=== PATIENT | female | born 1980 | race Asian ===

== ENCOUNTER 2017-12-05 05:15 | Inpatient (IN) | payer OTHER ==
[2017-12-05] MEDS ORDERED: SODIUM CHLORIDE 1,000 ML IV SCH (05:55)
[2017-12-05 06:07] VITALS: BMI 26.2
[2017-12-05 06:11] LABS: BASO % 0.8 % (0-2.0); EOS % 1.5 % (0-4.5); HEMATOCRIT 31.2 % (32.4-45.2); LYMPH % 27.5 % (8-40); MCH 24.7 pg (25.7-33.7); MCHC 32.1 g/dl (32.0-36.0); MEAN CELL VOLUME 76.7 fl (80-96); MEAN PLT VOLUME 10.2 fl (7.5-11.1); MONO % 5.8 % (3.8-10.2); NEUT % 64.4 % (42.8-82.8); PLATELET COUNT 316 K/MM3 (134-434); RBC 4.06 M/mm3 (3.60-5.2); RDW 16.5 % (11.6-15.6); WHITE BLOOD COUNT 12.3 K/mm3 (4.0-10.0)
[2017-12-05 06:25] LABS: ANION GAP 9 (8-16); BLOOD UREA NITROGEN 13 mg/dL (7-18); CALCIUM 8.5 mg/dL (8.5-10.1); CHLORIDE 107 mmol/L (98-107); CO2 20 mmol/L (21-32); CREATININE 0.6 mg/dL (0.55-1.02); GLUCOSE,RANDOM 102 mg/dL (74-106); SODIUM 136 mmol/L (136-145)
[2017-12-05 06:27] LABS: POTASSIUM 4.4 mmol/L (3.5-5.1)
[2017-12-05 06:44] LABS: INR 0.88 (0.82-1.09)
[2017-12-05 06:47] LABS: ACTIVATED PTT 27.1 SECONDS (26.9-34.4)
[2017-12-05] MEDS ORDERED: OXYTOCIN 20 UNITS in 0.9% NS 20 UNIT/1,000 ML INFUS.BAG IV ONE (07:26)
[2017-12-05] MEDS ORDERED: OXYTOCIN 20 UNITS in 0.9% NS 20 UNIT/1,000 ML INFUS.BAG IV SCH (07:50)
[2017-12-05] MEDS ORDERED: ACETAMINOPHEN 1000 MG/100 ML VIAL (NON FORMULARY) IVPB ONE (07:55)
[2017-12-05] MEDS ORDERED: ACETAMINOPHEN INJECTION 100 ML IVPB ONE (07:56)
[2017-12-05] MEDS ORDERED: BISACODYL 10 MG SUPP.RECT RC PRN (08:27)
[2017-12-05] MEDS ORDERED: BENZOCAINE 28 GM HEMORRHOIDAL OINTMENT TP PRN (08:27)
[2017-12-05] MEDS ORDERED: oxyCODONE HCL 5 MG TABLET PO PRN (08:27)
[2017-12-05] MEDS ORDERED: BENZOCAINE 20% 57 GM BOTTLE TP PRN (08:27)
[2017-12-05] MEDS ORDERED: WITCH HAZEL 50% (TUCKS) 40 PAD/JAR PAD TP PRN (08:27)
[2017-12-05] MEDS ORDERED: METHYLERGONOVINE MALEATE 0.2 MG/1 ML AMP IM PRN (08:27)
[2017-12-05] MEDS ORDERED: ACETAMINOPHEN 325 MG TABLET (FP) PO PRN (08:27)
[2017-12-05 08:38] LABS: ARTERIAL BLD GAS O2 SATURATION 27.5 % (90-98.9); ARTERIAL BLOOD GAS BASE EXCESS -6.3 meq/l (-2-2); ARTERIAL BLOOD GAS PCO2 52.5 mmHg (35-45); ARTERIAL BLOOD GAS PO2 18.5 mmHg (80-100); ARTERIAL BLOOD GAS pH 7.24 (7.35-7.45)
[2017-12-05 08:49] LABS: VENOUS PC02 39.5 mmHg (38-52); VENOUS PH 7.3 (7.32-7.42); VENOUS PO2 27.7 mmHg (28-48)
--- NOTE | 2017-12-05 08:52 | HP ---
Past Medical History - Primary Care Physician PCP:: Lanny Tinajero - Admission Chief Complaint: 37 yrs , 38.6 weeks IUP , admitted in labor, onset LP since 11.00 Pm on 12/04/17 . pt is known c/o GDM insulin dependent History of Present Illness: pnc with [facility] & 2 [facility] Pt was diagnosed GDM early during pregn , since Last pregn she was GDM , diet controlled . Hgb A1c 6.4%, fasting Bgm was 120.she was instructed to BGM qid . she was referred to Diabtologist . Current reqd :Insulin Lantus 22 iu & Novolog 4 Iu befor meals MFM was following her for serial sonograms for growth , last 4 weeks q week BPP & NST NT screen & Modified Sequentia screen was neg , ECHO normal work Up : A pos, Rubella immune, Rpr nr, Hbsag neg, Hiv neg , Quantiferon neg, Gc/Ct neg, Gbs neg . she had an episode of urine retention once in 3rd trimester & fecal impaction , she was g catheterized, followed by Fleets Enema ineffective, followed by SSE which was satisfactory she continued stool softner ,diet & hemorrhoidal cream during . 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 No: UTI ...: 3 ...Para: 2 ...Term: 2 ...: 0 ...Spon : 0 ...Induced : 0 ...Multiple Gestation: 0 ...LMP: 03/22/17 ... Weeks Gestation by Dates: 36.6 ...EDC by Dates: 12/27/17 ...EDC by Sono: 12/13/17 (38.6weeks ) Additional OB History: G1 05/13/2004 38.2 weeks forceps delivery sJRh. G2 2009 GDM diet controlled at [facility] Heme/Onc: Yes: Anemia Infectious Disease: No: HIV, STD's, Tuberculosis Psych: Yes: Other (denies) Musculoskeletal: Yes: Other (denies) Rheumatology: Yes: Other (enies) ENT: Yes: Other (denies) Endocrine: Yes: Other (GDM) Dermatology: Yes: Other (denies) - Past Surgical History Past Surgical History: Yes: Cholecystectomy (2012) Hx Myomectomy: No Hx Transabdominal Cerclage: No - Smoking History Smoking history: Never smoked Have you smoked in the past 12 months: No - Alcohol/Substance Use Hx Alcohol Use: No History of Substance Use: reports: None - Social History History of Recent Travel: No Home Medications - Allergies Allergies/Adverse Reactions: Allergies Allergy/AdvReac Type Severity Reaction Status Date / Time ibuprofen Allergy Mild Rash Verified 11/21/17 23:55 Latex, Natural Rubber Allergy Mild Rash Verified 11/21/17 23:55 - Home Medications Home Medications: Ambulatory Orders Pnv No.95/Ferrous Fum/Folic AC [ Vitamin Tablet] 1 each PO DAILY Insulin (Novolog) [Novolog] 4 units SQ AC 10/19/17 Insulin Glargine,Hum.rec.anlog [Lantus (nf)] 22 units SQ HS 11/02/17 Physical Exam - Maternity Vital Signs: Vital Signs Temperature 97.6 F 12/05/17 06:00 Pulse Rate 79 12/05/17 06:00 Respiratory Rate 20 12/05/17 06:00 Blood Pressure 129/82 12/05/17 06:00 O2 Sat by Pulse Oximetry (%) Constitutional: Yes: Well Nourished, Severe Distress Eyes: Yes: WNL HENT: Yes: WNL Neck: Yes: WNL Cardiovascular: Yes: WNL Lungs: Clear to auscultation Breast(s): Yes: Other (not exammined) - Abdominal Exam/OB Fundal Height: 40 Number of Fetuses: Single Presentation: Vertex Contractions: Yes Regularity: Regular (2-3 min) Intensity: Strong Monitor Mode: External Heart Rate (range): 140 Heart Rate Location: [facility] Category: I Accelerations: Uniform Decelerations: None - Vaginal Exam/OB Vaginal Bleediing: Bloody Show Speculum Exam: No Dilatation (cm): 9 Effacement (%): 100 Amniotic Membrane Status: Ruptured (AROM 7.20 AM) Amniotic Fluid: Yes: Clear (scanty) Presentation: Vertex/Position Station: +1 - Physical Exam Musculoskeletal: Yes: WNL Extremities: Yes: WNL. No: Calf Tenderness Edema: Yes Edema: LLE: 1+, RLE: 1+ Deep Tendon Reflex Grade: Normal +2 ...Motor Strength: WNL Psychiatric: Yes: WNL, Alert, Oriented - Labs Lab Results: CBC, BMP 12/05/17 05:55 12/05/17 05:55 BGM 5.30 AM 108 Problem List - Problems (1) with 38 completed weeks gestation Code(s): Z3A.38 - 38 WEEKS GESTATION OF (2) Gestational diabetes mellitus (GDM) in childbirth, insulin controlled Code(s): O24.424 - GESTATIONAL DIABETES IN CHILDBIRTH, INSULIN CONTROLLED (3) Labor established Code(s): [id number] - Assessment/Plan 37 yrs , GDM on insulin coverage , Gbs neg, in active labor Plan vag delivery
--- NOTE | 2017-12-05 09:28 | PN ---
Delivery - Delivery Vaginal Delivery: Spontaneous (baby delievered in LARISSA position , cord around neck , was untangled , exagerrated lithotomy position was given , suprapubic pressure applied by Nurse ant shoulder was delievered wihout difficulty) Type of Anesthesia: Local Episiotomy/Laceration: Perineal Extension/lac, 2nd degree (laceration was sutured in layers with chr catgut # 2/0 bladder catheterized & emptied 100 ml urine pr exam was done mucosa & sphincter was intact) EBL (cc): 300 Delivery, Single - Stages of Labor Date 1st Stage Initiatied: 12/05/17 Time 1st Stage Initiated: 03:00 Date 2nd Stage Initiated: 12/05/17 Time 2nd Stage Initiated: 07:35 Date of Delivery: 12/05/17 Time of Delivery: 07:45 Time Placenta Delivered: 07:50 Placenta: Yes: Spontaneous, Uterine Exploration - Condition of Truck Rental Service Attendant/Steam Room Attendant Present: No Gender: Female Weight: 8 lb 1 oz Position: Left, OA Total Hours ROM (Hrs/Mins): 30MIN - 1 Minute Total Score: 8 5 Minutes Total Score: 9 - Feeding Plan Initial Plan: Exclusive throughout hospitalization Remarks - Remarks Remarks: 37 yrs , 38.6/7 weeks in active labor, Gbs neg . pnc with [facility] at [facility] & 2, [facility] Intrapartum course uneventful, no analgesia received. after delivery IV Tyleno 1000 mg given during suturing of laceration . Pp BGM 127 .v/s stable
--- NOTE | 2017-12-05 10:00 | CONSULT ---
Consult Consult Specialty:: Endocrinology Referred by:: Dr Tinajero Reason for Consultation:: GDM - History of Present Illness Chief Complaint: Hyperglycemia History of Present Illness: This is a 37 y/o F with GDM on Levemir 22 units daily and Novolog 4 units TID is now s/p delivery and is referred for management of blood sugar. FS at home was 80 to 90 for the last few days since increase in Levemir dose to 22. Pt had missed appointment and had come for f/u last week after a gap of about 2 months. A1c was 7. 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 No: UTI ...LMP: 12/14/13 Infectious Disease: No: HIV, STD's, Tuberculosis Psych: Yes: Other (denies) Musculoskeletal: Yes: Other (denies) Rheumatology: Yes: Other (enies) ENT: Yes: Other (denies) Endocrine: Yes: Other (GDM) Dermatology: Yes: Other (denies) - Past Surgical History Past Surgical History: Yes: Cholecystectomy (2012) - Alcohol/Substance Use Hx Alcohol Use: No History of Substance Use: reports: None - Smoking History Smoking history: Never smoked Have you smoked in the past 12 months: No - Social History History of Recent Travel: No Home Medications - Allergies Allergies/Adverse Reactions: Allergies Allergy/AdvReac Type Severity Reaction Status Date / Time ibuprofen Allergy Mild Rash Verified 11/21/17 23:55 Latex, Natural Rubber Allergy Mild Rash Verified 11/21/17 23:55 - Home Medications Home Medications: Ambulatory Orders Pnv No.95/Ferrous Fum/Folic AC [ Vitamin Tablet] 1 each PO DAILY Insulin (Novolog) [Novolog] 4 units SQ AC 10/19/17 Insulin Glargine,Hum.rec.anlog [Lantus (nf)] 22 units SQ HS 11/02/17 Family Disease History - Family Disease History Family Disease History: Diabetes: Mother Review of Systems - Review of Systems Constitutional: reports: No Symptoms Eyes: reports: No Symptoms HENT: reports: No Symptoms Neck: reports: No Symptoms Cardiovascular: reports: No Symptoms Respiratory: reports: No Symptoms Gastrointestinal: reports: No Symptoms Genitourinary: reports: No Symptoms Musculoskeletal: reports: No Symptoms Neurological: reports: No Symptoms Endocrine: reports: No Symptoms Physical Exam Vital Signs: Vital Signs Temperature 98.2 F 12/05/17 08:00 Pulse Rate 69 12/05/17 08:45 Respiratory Rate 18 12/05/17 08:45 Blood Pressure 132/88 12/05/17 08:45 O2 Sat by Pulse Oximetry (%) 100 12/05/17 08:45 Constitutional: Yes: No Distress, Calm Eyes: Yes: Conjunctiva Clear, EOM Intact HENT: Yes: Atraumatic, Normocephalic Neck: Yes: Supple, Trachea Midline Cardiovascular: Yes: Regular Rate and Rhythm Respiratory: Yes: Regular, CTA Bilaterally Gastrointestinal: Yes: Normal Bowel Sounds, Soft Renal/: Yes: WNL Musculoskeletal: Yes: WNL Extremities: Yes: WNL Edema: No Neurological: Yes: Alert, Oriented Labs: CBC, BMP 12/05/17 05:55 12/05/17 05:55 Assessment/Plan AP: Gestational DM: S/P delivery Diet Exercise discussed Diabetes Education done Discussed need to control blood sugar to prevent development of DM in the future BGM ACHS Last A1c 7.0 in the office Was on Levemir 22 units daily at HS and Novolog 4 units TID with meals. No Levemir for now Novolog SS coverage Will F/u
[2017-12-05] MEDS ORDERED: INSULIN SLIDING SCALE (NOVOLOG) 1 VIAL SQ SCH (11:00)
[2017-12-05] MEDS: INSULIN SLIDING SCALE (NOVOLOG) 1 VIAL SQ SCH ×3 (11:00→22:12)
[2017-12-05] MEDS: PRENATAL VITAMINS W/ FOLIC ACID TABLET (FP) PO SCH (12:03)
[2017-12-05] MEDS: FERROUS SO4 325 MG TABLET (FP) PO SCH (18:27)
[2017-12-06] MEDS: INSULIN SLIDING SCALE (NOVOLOG) 1 VIAL SQ SCH ×4 (06:15→22:47)
[2017-12-06 08:22] LABS: BASO % 0.3 % (0-2.0); EOS % 0.6 % (0-4.5); LYMPH % 23.8 % (8-40); MCH 24.1 pg (25.7-33.7); MCHC 31.1 g/dl (32.0-36.0); MEAN CELL VOLUME 77.4 fl (80-96); MEAN PLT VOLUME 10.3 fl (7.5-11.1); MONO % 4.5 % (3.8-10.2); NEUT % 70.8 % (42.8-82.8); PLATELET COUNT 253 K/MM3 (134-434); RBC 3.75 M/mm3 (3.60-5.2); RDW 16.7 % (11.6-15.6); WHITE BLOOD COUNT 15.6 K/mm3 (4.0-10.0)
[2017-12-06] MEDS: PRENATAL VITAMINS W/ FOLIC ACID TABLET (FP) PO SCH (09:42)
[2017-12-06] MEDS: FERROUS SO4 325 MG TABLET (FP) PO SCH ×2 (09:42→18:36)
--- NOTE | 2017-12-06 09:48 | PN ---
Post Progress Note - Subjective Subjective: 37 yo Para 3 with h/o Diabetes, status post vaginal delivery, seen and evaluated. Doing well. Post Day: 1 Type of Delivery: Vital Signs: Vital Signs Temperature 98.3 F 12/06/17 06:01 Pulse Rate 78 12/06/17 06:01 Respiratory Rate 20 12/06/17 06:01 Blood Pressure 119/85 12/06/17 06:01 O2 Sat by Pulse Oximetry (%) 100 12/05/17 08:45 Breast Exam: Yes: Soft Uterus: Yes: Fundus Firm Abdomen/GI: Yes: Abdomen soft, Tolerating PO Lochia: Yes: Rubra Lochia, amount: Small Extremities: Yes: Calves non-tender Perineum: Yes: Intact Activity: Ambulating - Labs Labs: CBC WBC 15.6 K/mm3 (4.0-10.0) H 12/06/17 06:00 RBC 3.75 M/mm3 (3.60-5.2) 12/06/17 06:00 Hgb 9.0 GM/dL (10.7-15.3) L 12/06/17 06:00 Hct 29.0 % (32.4-45.2) L 12/06/17 06:00 MCV 77.4 fl (80-96) L 12/06/17 06:00 MCH 24.1 pg (25.7-33.7) L 12/06/17 06:00 MCHC 31.1 g/dl (32.0-36.0) L 12/06/17 06:00 RDW 16.7 % (11.6-15.6) H 12/06/17 06:00 Plt Count 253 K/MM3 (134-434) 12/06/17 06:00 MPV 10.3 fl (7.5-11.1) 12/06/17 06:00 Neutrophils % 70.8 % (42.8-82.8) 12/06/17 06:00 Lymphocytes % 23.8 % (8-40) 12/06/17 06:00 Monocytes % 4.5 % (3.8-10.2) 12/06/17 06:00 Eosinophils % 0.6 % (0-4.5) 12/06/17 06:00 Basophils % 0.3 % (0-2.0) 12/06/17 06:00 Problem List - Problems (1) Status post normal vaginal delivery Code(s): [id number] - Assessment/Plan Status post vaginal delivery Personal h/o Diabetes Continue care Medical compliance
[2017-12-06 20:50] VITALS: TEMP 98.4
[2017-12-06] MEDS ORDERED: SENNOSIDES/DOCUSATE COMBO (SENNA PLUS) TABLET (UD) PO PRN (22:00)
--- NOTE | 2017-12-07 06:52 | DS ---
Physical Exam-BUSINESS INTELLIGENCE REPORTING ANALYST Vital Signs: Vital Signs Temperature 98.4 F 12/06/17 20:49 Pulse Rate 85 12/06/17 20:49 Respiratory Rate 20 12/06/17 20:49 Blood Pressure 125/85 12/06/17 20:49 O2 Sat by Pulse Oximetry (%) 100 12/05/17 08:45 Constitutional: Yes: Well Nourished, Pallor, Other (no complains) Eyes: Yes: WNL HENT: Yes: WNL Neck: Yes: WNL Cardiovascular: Yes: WNL Respiratory: Yes: WNL Gastrointestinal: Yes: WNL Renal/: Yes: WNL ....Post : Yes: Uterus firm, Uterus non-tender, Moderate lochia rubra ( laceration healing) Breast(s): Yes: WNL (not engorged) Extremities: Yes: WNL. No: Calf Tenderness Edema: Yes Edema: LLE: 1+, RLE: 1+ Integumentary: Yes: WNL Neurological: Yes: WNL ...Motor Strength: WNL Psychiatric: Yes: WNL, Alert, Oriented Labs: CBC, BMP 12/06/17 06:00 12/05/17 05:55 Laboratory Tests 12/06/17 12/06/17 12/06/17 06:13 11:44 16:43 POC Glucometer 86 120 99 12/06/17 12/07/17 22:41 06:20 POC Glucometer 130 84 Delivery - Delivery Vaginal Delivery: Spontaneous (baby delievered in LARISSA position , cord around neck , was untangled , exagerrated lithotomy position was given , suprapubic pressure applied by Nurse ant shoulder was delievered wihout difficulty) Type of Anesthesia: Local Episiotomy/Laceration: Perineal Extension/lac, 2nd degree (laceration was sutured in layers with chr catgut # 2/0 bladder catheterized & emptied 100 ml urine pr exam was done mucosa & sphincter was intact) EBL (cc): 300 Delivery, Single - Stages of Labor Date 1st Stage Initiatied: 12/05/17 Time 1st Stage Initiated: 03:00 Date 2nd Stage Initiated: 12/05/17 Time 2nd Stage Initiated: 07:35 Date of Delivery: 12/05/17 Time of Delivery: 07:45 Time Placenta Delivered: 07:50 Placenta: Yes: Spontaneous, Uterine Exploration - Condition of Hall Supervisor/Refinery Pipeline Operator Present: No Infant Gender: Female Weight: 8 lb 1 oz Position: Left, OA Total Hours ROM (Hrs/Mins): 30MIN - 1 Minute Total Score: 8 5 Minutes Total Score: 9 - [place] Feeding Plan Initial Plan: Exclusive throughout hospitalization Remarks - Remarks Remarks: 37 yrs , 38.6/7 weeks in active labor, Gbs neg . pnc with [facility] at [address] Intrapartum course uneventful, no analgesia received. after delivery IV Tyleno 1000 mg given during suturing of laceration . Pp BGM 127 .v/s stable pp bgm are well controlled on diet anemia counselled discharge today Discharge Summary Reason For Visit: LABOR ADMIT Current Active Problems Gestational diabetes mellitus (GDM) in childbirth, insulin controlled (Acute) Labor established (Acute) with 38 completed weeks gestation (Acute) Status post normal vaginal delivery (Acute) Condition: Stable - Instructions Diet, Activity, Other Instructions: Post Instructions DIET: Continue good diet high in protein, calcium, and iron rich foods. Drink at least eight (8) glasses of water daily in addition to other fluids. Diabetic Diet MEDICATIONS: Continue vitamins and iron as previously directed. Motrin and Tylenol may be taken for minor discomfort. ACTIVITY: Mild to moderate exercise may be started in two (2) weeks. Take frequent rest periods. Resume normal activity after six (6) week check up. WOUND CARE OF OPERATIVE SITE: Continue use of perineal bottle until vaginal discharge stops. Keep area clean. Shower daily. Keep abdominal wound dry. Report any drainage or redness to physician. Tub baths, tampons and douches are not permitted for [address] Breast feeding & or Bottle feeding BREAST CARE: (For those that are not breast feeding): If engorgement occurs: Wear tight fitting bra. Take Tylenol or Motrin for pain. Apply cold packs (ice in bags to each breast ) FAMILY PLANNING: There are many control alternatives to pursue and they should be discussed at your first office visit. You may resume sexual activity after your six (6) week check up. (Remember, breast feeding is not a contraceptive) NEXT PHYSICIAN APPOINTMENT: Be certain to call for a six (6) week appointment, unless otherwise directed. Follow with Dr Hernandez for diabetes Call Clinic or got to Emergency Dept if you have any of the following: Heavy vaginal bleeding Painful urination Leg pain Unusual odor noted to vaginal bleeding High fever Red streaking noted on breast. check BGM fasting & postprandial twice a week Referrals: Lanny Tinajero MD [Staff Physician] - Disposition: HOME - Home Medications Comprehensive Discharge Medication List: Ambulatory Orders Pnv No.95/Ferrous Fum/Folic AC [ Vitamin Tablet] 1 each PO DAILY Acetaminophen [Tylenol .Regular Strength -] 650 mg PO Q3H PRN tablet 12/06/17 Benzocaine Ointment [Americaine Ointment -] 1 applic TP PRN PRN tube 12/06/17 Benzocaine [Americaine 20% [place] -] 1 spray TP PRN PRN bottle 12/06/17 Docusate Sodium [Colace] 100 mg PO BID #60 capsule 12/06/17 Ferrous Sulfate [Feosol] 325 mg PO BIDWM #60 tab 12/06/17 Vitamins (Sjr) - 1 tab PO DAILY #30 tablet 12/06/17 Witch Penelope 50% (Tucks) [Tucks Pads -] 1 pad TP PRN PRN pad 12/06/17
[2017-12-07] MEDS: INSULIN SLIDING SCALE (NOVOLOG) 1 VIAL SQ SCH (07:05)
[2017-12-07 08:20] VITALS: BP 129/87; PULSE 77
[2017-12-07] MEDS: FERROUS SO4 325 MG TABLET (FP) PO SCH (08:32)
[2017-12-07] MEDS: PRENATAL VITAMINS W/ FOLIC ACID TABLET (FP) PO SCH (09:37)
== END 2017-12-07 10:30 | disposition home or self-care (01) | DRG 560 ==
LOC: JLDR 05:15 → J3W 09:45
PROVIDERS: ADMIT Obstetrics & Gynecology; ATTEND Obstetrics & Gynecology
PROC: 10E0XZZ Delivery of Products of Conception, External Approach (ICD-10-PCS; principal; 2017-12-05)
PROC: 0W8NXZZ Division of Female Perineum, External Approach (ICD-10-PCS; 2017-12-05)
PROC: 0KQM0ZZ Repair Perineum Muscle, Open Approach (ICD-10-PCS; 2017-12-05)
DX: O24.424 Gestational diabetes mellitus in childbirth, insulin controlled (principal); O69.81X0 Labor and delivery complicated by cord around neck, without compression, not applicable or unspecified; O70.1 Second degree perineal laceration during delivery; Z3A.38 38 weeks gestation of pregnancy; Z37.0 Single live birth
CPT/HCPCS: 36415; 36600; 59409; 80048; 82803; 82962; 85025; 85610; 85730; 86593; 86850; 86900; 86901

== ENCOUNTER 2018-02-02 13:01 | Emergency (ER) | payer OTHER ==
[2018-02-02 13:09] VITALS: BP 111/74; PULSE 66; TEMP 98.3; BMI 22.3
[2018-02-02] MEDS ORDERED: ACETAMINOPHEN 500 MG TABLET (FP) PO ONE (14:15)
--- NOTE | 2018-02-02 14:18 | PDOC ---
History of Present Illness - General Chief Complaint: Pain Stated Complaint: PAIN/ RT SIDE, ABD, LEG Time Seen by Provider: 02/02/18 14:00 History Source: Patient Exam Limitations: No Limitations - History of Present Illness Initial Comments: 02/02/18 14:16 Patient here with complaints of right groin pain for over a month. States is 2 months, and had pain occur proximally 2 weeks after Librium child vaginally. Denies fever, denies any nausea vomiting, denies any numbness or tingling to hands or feet. Has no history of hernia and denies bulging at groin site however states pain is isolated to her groin without radiation down legs. Does not feel is internal or vaginally related. Has taken no medication for relief of same, has not discussed with 02/02/18 17:09 Occurred: reports: other (1 month) Severity: reports: mild, moderate Pain Location: reports: pelvis (right groin/ upper right leg) Modifying Factors: improves with: None Loss of Consciousness: no loss of consciousness Associated Symptoms (Fall): denies symptoms Past History - Travel Traveled outside of the country in the last 30 days: No Close contact w/someone who was outside of country & ill: No - Past Medical History Allergies/Adverse Reactions: Allergies Allergy/AdvReac Type Severity Reaction Status Date / Time ibuprofen Allergy Mild Rash Verified 02/02/18 13:05 Latex, Natural Rubber Allergy Mild Rash Verified 02/02/18 13:05 Home Medications: Ambulatory Orders Pnv No.95/Ferrous Fum/Folic AC [ Vitamin Tablet] 1 each PO DAILY Acetaminophen [Tylenol .Regular Strength -] 650 mg PO Q3H PRN tablet 12/06/17 Benzocaine Ointment [Americaine Ointment -] 1 applic TP PRN PRN tube 12/06/17 Benzocaine [Americaine 20% [place] -] 1 spray TP PRN PRN bottle 12/06/17 Docusate Sodium [Colace] 100 mg PO BID #60 capsule 12/06/17 Ferrous Sulfate [Feosol] 325 mg PO BIDWM #60 tab 12/06/17 Vitamins (Sjr) - 1 tab PO DAILY #30 tablet 12/06/17 Witch Penelope 50% (Tucks) [Tucks Pads -] 1 pad TP PRN PRN pad 12/06/17 Acetaminophen 650 mg PO Q4H PRN #30 tablet 02/02/18 Anemia: No Asthma: No Cancer: No Cardiac Disorders: No CVA: No COPD: No CHF: No Dementia: No Diabetes: Yes (only during ) GI Disorders: Yes (GASTRIC ULCER) Disorders: No HTN: No Hypercholesterolemia: No Liver Disease: No Seizures: No Thyroid Disease: No Other medical history: denies. - Surgical History Cholecystectomy: Yes - Suicide/Smoking/Psychosocial Hx Smoking History: Never smoked Have you smoked in the past 12 months: No Hx Alcohol Use: No Drug/Substance Use Hx: No Substance Use Type: None Hx Substance Use Treatment: No Trauma Specific PMHX - Complaint Specific PMHX Back Injury: No Neck Injury: No Review of Systems - Review of Systems Able to Perform ROS?: Yes Is the patient limited Togolese proficient: Yes Constitutional: Yes: See HPI. No: Symptoms Reported, Fever, Loss of Appetite, Malaise HEENTM: No: Symptoms Reported Respiratory: No: Symptoms reported ABD/GI: Yes: Symptoms Reported, See HPI. No: Nausea, Vomiting, Abdominal cramping Musculoskeletal: Yes: Symptoms Reported, See HPI, Joint Pain, Joint Stiffness ( right inguinal area/ groin, worse with movement ) Integumentary: Yes: See HPI. No: Symptoms Reported Neurological: No: Symptoms reported All Other Systems: Reviewed and Negative *Physical Exam - Vital Signs Last Vital Signs Temp Pulse Resp BP Pulse Ox 98.3 F 66 19 111/74 98 02/02/18 13:05 02/02/18 13:05 02/02/18 13:05 02/02/18 13:05 02/02/18 13:05 - Physical Exam General Appearance: Yes: Nourished, Appropriately Dressed. No: Apparent Distress HEENT: positive: BISHNU, Normal ENT Inspection, TMs Normal, Pharynx Normal Neck: positive: Supple Respiratory/Chest: positive: Lungs Clear Gastrointestinal/Abdominal: positive: Normal Bowel Sounds, Soft. negative: Tender, Organomegaly, Distended, Guarding, Rebound, Hepatomegaly, Spleenomegaly Musculoskeletal: positive: Normal Inspection, Other (point tenderness to right groin at inguinal ligament. Has no tenderness bulging at rest. Abdomen is soft and nontender without rebound or guarding with forward flexion straight leg to right leg pain is reproduced with palpation at groin ligament.). negative: Decreased Range of Motion Extremity: positive: Normal Range of Motion Integumentary: positive: Normal Color, Pale Neurologic: positive: last turner II-XII NML intact, Fully Oriented, Alert, Normal Mood/ Affect, Normal Response, Motor Strength 5/5 Progress Note - Progress Note Progress Note: Right groin strain, will recommend Tylenol as patient is unable to take ibuprofen. Rest and follow up with OB as needed *DC/Admit/Observation/Transfer Diagnosis at time of Disposition: Strain of right inguinal muscle Qualifiers: Encounter type: initial encounter Qualified Code(s): S39.013A - Strain of muscle, fascia and tendon of pelvis, initial encounter - Discharge Dispostion Disposition: HOME Condition at time of disposition: Stable Admit: No - Referrals Referrals: Alyx Tafoya [Primary Care Provider] - - Patient Instructions Printed Discharge Instructions: DI for Groin Strain Additional Instructions: Rest, ice to area on and off for 15 minutes 4-6 times a day Avoid heavy lifting or exercise until pain and swelling is resolved or until further directed Keep area highly elevated to reduce swelling Followup with PMD in one to 2 days if not improving, if significantly improved may wait one week for followup with orthopedist May use Tylenol 2- 325mg -tablets every 6 hours as needed for pain - Post Discharge Activity
[2018-02-02] MEDS ORDERED: ACETAMINOPHEN 500 MG TABLET (FP) ONE (14:22)
== END 2018-02-02 14:27 | disposition home or self-care (01) ==
LOC: JERFT 13:01
DX: S39.013A Strain of muscle, fascia and tendon of pelvis, initial encounter (principal); X50.9XXA Other and unspecified overexertion or strenuous movements or postures, initial encounter; Y93.89 Activity, other specified; Y92.89 Other specified places as the place of occurrence of the external cause; Y99.8 Other external cause status
CPT/HCPCS: 99281-25

== ENCOUNTER 2019-04-16 05:03 | Day surgery (SDC) | payer OTHER | END 2019-04-16 18:25 | disposition home or self-care (01) | LOC: JASU-SURG 05:03 ==

== ENCOUNTER 2021-11-04 13:48 | Emergency (ER) | payer OTHER ==
[2021-11-04 14:02] VITALS: BP 103/78; PULSE 68; TEMP 98.1; BMI 26.2
[2021-11-04] MEDS ORDERED: FAMOTIDINE 20 MG TABLET PO ONE (16:05)
[2021-11-04] MEDS ORDERED: DEXAMETHASONE LIQUID 0.5 MG/5 ML PO ONE (16:05)
[2021-11-04] MEDS ORDERED: DEXAMETHASONE SOD PHOSPHATE 10 MG/1 ML VIAL ONE (16:15)
[2021-11-04] MEDS ORDERED: FAMOTIDINE 20 MG TABLET ONE (16:16)
== END 2021-11-04 17:07 | disposition home or self-care (01) ==
LOC: JERFT 13:48
DX: L23.9 Allergic contact dermatitis, unspecified cause (principal)
CPT/HCPCS: 99283-25

== ENCOUNTER 2023-10-27 16:55 | Emergency (ER) | payer OTHER ==
[2023-10-27 17:29] VITALS: BP 120/75; PULSE 73; RESP 18; TEMP 98.6; BMI 25.5
[2023-10-27] MEDS ORDERED: ACETAMINOPHEN 500 MG TABLET (FP) PO ONE (18:18)
[2023-10-27] MEDS ORDERED: ACETAMINOPHEN 325 MG TABLET (FP) ONE (19:00)
== END 2023-10-27 19:35 | disposition home or self-care (01) ==
LOC: JER 16:55
DX: R51.9 Headache, unspecified (principal)
CPT/HCPCS: 99283-25